=== PATIENT | male | born 1965 | race Caucasian/White ===

== ENCOUNTER 2016-11-28 06:44 | Emergency (ER) | payer OTHER ==
[~2016-11-28] VITALS: Ht 162.6 cm; Wt 89.1 kg
[2016-11-28 06:49] VITALS: TEMP 36.8; Ht 162.6 cm; Wt 89.1 kg
[2016-11-28] MEDS ORDERED: KETOROLAC TROMETHAMINE 60 MG/2 ML VIAL IM STA (07:25)
[2016-11-28] MEDS ORDERED: HYDROmorphone INJ 0.5 MG/0.5 ML SYR IM ONE ×2 (07:30→08:30)
--- NOTE | 2016-11-28 07:33 | EMERGENCY ROOM VISIT NOTE ---
History First contact with patient: 06:54 Chief Complaint: BACK PAIN Stated Complaint: LOWER BACK PAIN History of Present Illness The patient is a 51 year old male w/ hx of Kidney Stones, who presents to the Emergency Room with complaints of Rt sided Lower back pain. Pain started suddenly 1 wk prior to arrival, 8 /10 intensity while he was walking to his care. He did not take any medication for pain but pain improved significantly until today. Currently , he is complaining of 9/10 pain in the same region, NO fevers/chills, no bladder or bowel incontinence, no numbness weakness, tingling . Pt denies headache, change in vision, fevers, chest pain, shortness of breath , nausea, vomiting, pain with urination, hematuria and melena. Review of Systems See HPI for pertinent positives & negatives. A total of 10 systems reviewed and were otherwise negative. Past Medical/Surgical History Medical Problems: (1) Diverticulitis Past Medical Hx: Nephrolithiasis Diverticulitis Past Surgical Hx: Rt Knee meniscus repair Social History Smoking Status: Never Smoker Marital Status: Current/Historical Medications Scheduled PRN Oxycodone Immediate Rel Tab (Roxicodone Ir), 5 MG PO Q4H PRN for Severe Pain Allergies Coded Allergies: No Known Allergies (Unverified , 11/28/16) Physical Exam Vital Signs Date Time Temp Pulse Resp B/P Pulse Ox O2 Delivery O2 Flow Rate FiO2 11/28/16 08:33 61 18 127/86 93 Room Air 11/28/16 06:49 36.8 87 18 160/103 96 Room Air Physical Exam GENERAL: alert, well appearing, well nourished, no distress, non-toxic EYE EXAM: normal conjunctiva, PERRL and EOM's grossly intact NECK: supple, no nuchal rigidity, no adenopathy, non-tender LUNGS: Clear to auscultation. Normal chest wall mechanics HEART: no murmurs, S1 normal and S2 normal ABDOMEN: abdomen soft, non-tender, normo-active bowel sounds, no masses, no rebound or guarding. BACK: Rt sided paraspinal muscle tenderness to palpation in lumbar region, Back is symmetrical on inspection and there is no deformity, no midline tenderness, no CVA tenderness. straight leg raise test negative. SKIN: no rashes and no bruising UPPER EXTREMITIES: upper extremities are grossly normal. LOWER EXTREMITIES: No pitting edema. NEURO EXAM: Normal sensorium, cranial nerves II-XII grossly intact, normal speech, no gross weakness of arms, no gross weakness of legs. Gross sensation intact. Medical Decision & Procedures ER Provider Diagnostic Interpretation: LUMBAR SPINE 5 VIEWS CLINICAL HISTORY: Low back pain. FINDINGS: 5 views of the lumbar spine are correlated with abdominal CT dated 01/29/2011. The skeletal structures are well mineralized. There is no radiographic evidence of fracture or malalignment. Vertebral body height and alignment are maintained. The transverse and spinous processes are intact. There is no evidence of spondylolysis. Small anterior osteophytes are seen throughout. There is mild to moderate degenerative disc space narrowing at L5-S1. Mild disc space narrowing is seen at L3-L4 and L4-L5. The visualized bony pelvis appears intact. There is a nonobstructed abdominal bowel gas pattern. IMPRESSION: No acute bony abnormality is seen involving the lumbosacral spine. Laboratory Results Test 11/28/16 07:29 Urine Color YELLOW Urine Appearance CLEAR (CLEAR) Urine pH 5.5 (4.5-7.5) Urine Specific [place] 1.020 (1.000-1.030) Urine Protein NEG (NEG) Urine Glucose (UA) NEG (NEG) Urine Ketones NEG (NEG) Urine Occult Blood NEG (NEG) Urine Nitrite NEG (NEG) Urine Bilirubin NEG (NEG) Urine Urobilinogen NEG (NEG) Urine Leukocyte Esterase NEG (NEG) Urine WBC (Auto) 1-5 /hpf (0-5) Urine RBC (Auto) 0-4 /hpf (0-4) Urine Hyaline Casts (Auto) 1-5 /lpf (0-5) Urine Epithelial Cells (Auto) 0-5 /lpf (0-5) Urine Bacteria (Auto) NEG (NEG) Medications Administered Medications (Trade) Dose Ordered Sig/Nicole Route Start Time Stop Time Status Last Admin Dose Admin Ketorolac Tromethamine (Toradol Inj) 60 mg NOW STAT IM 11/28/16 07:25 11/28/16 07:27 DC 11/28/16 07:25 60 MG Hydromorphone HCl (Dilaudid Inj) 0.5 mg ONE ONCE IM 11/28/16 07:30 11/28/16 07:31 DC 11/28/16 07:30 0.5 MG Hydromorphone HCl (Dilaudid Inj) 0.5 mg NOW ONCE IM 11/28/16 08:30 11/28/16 08:31 DC 11/28/16 08:34 0.5 MG Medical Decision Differential diagnoses includes but is not limited to lumbar radiculopathy, muscle strain, facture, cauda equina, mass, and disc herniation. 51 yo M p/w with Rt sided Lower back pain x 1 wk, rt sided lumbar paraspinal muscle tender on palpation, straight leg test negative, afebrile , no paresthesia Lower Back pain UA: unremarkable -XR Lumbar Spine: No acute bony abnormality is seen involving the lumbosacral spine. -Given IM Toradol 60 mg -Given .5 mg IM Dilaudid x2 Lower back pain most likely due to muscle strain as patient is involved with lifting heavy objects on the job. Disc herniation is unlikely considering lack of radiculopathy on straight leg test. Fx ruled out with XR and no hx of trauma. Kidney stone etiology unlikely given lack of CVA tenderness and lack of hematuria on UA. Upon reevaluation, the patient is feeling better. I discussed the findings and the treatment plan with the patient. He verbalizes agreement and understanding. He was discharged home with follow up to PCP. Impression Primary Impression: Lower back pain Departure Information Dispostion Home / Self-Care Condition GOOD Prescriptions Oxycodone Immediate Rel Tab (ROXICODONE IR) 5 Mg Tab 5 MG PO Q4H Y for Severe Pain, #20 TAB Prov: Johnny Beckman, DO 11/28/16 Referrals Yosvany Duggan D.O.Int.Med. (PCP) Patient Instructions My [facility] Resident Tracking Resident Involvement: Resident Care Provided Care Provided: Adult ED Problem Qualifiers Primary Impression: Lower back pain Chronicity: acute Back pain laterality: right
[2016-11-28 07:57] LABS: URINE APPEARANCE CLEAR (CLEAR); URINE BILIRUBIN NEG (NEG); URINE COLOR YELLOW; URINE EPITHELIAL CELL AUTO 0-5 /lpf (0-5); URINE NITRITE NEG (NEG); URINE PH 5.5 (4.5-7.5); UROBILINOGEN NEG (NEG)
[2016-11-28 08:00] LABS: MANUAL MICROSCOPIC REQUIRED? NO; REVIEW REQ? NO
--- NOTE | 2016-11-28 08:02 | EMERGENCY ROOM VISIT NOTE ---
History Report prepared by Peter: Felix Turner Under the Supervision of: Dr. Johnny Beckman D.O. First contact with patient: 06:54 Chief Complaint: BACK PAIN Stated Complaint: LOWER BACK PAIN History of Present Illness The patient is a 51 year old male who presents to the Emergency Room with complaints of persistent right-sided lower back pain that started a week ago. The patient states that he felt a sharp pain in his low back when he was walking down his driveway a week ago. The discomfort is worse with changing positions. It is somewhat relieved when he is standing. The patient notes the discomfort worsened 2 days ago and has not improved at all since then. He also states that it radiates down through to his butt. The patient lifts a lot at work, but says that the lifting has not been aggravating his discomfort more. He also has a history of kidney stones, but states that his symptoms are different from his typical kidney stone symptoms. Pt denies headache, change in vision, fevers, chest pain, shortness of breath, nausea, vomiting, pain with urination, and melena. No weakness or numbness in his groin. No change with urination or moving his bowels. No numbness in his extremities. No weakness in his extremities. Source of History: patient Onset: one week ago Position: back (lower) Timing: other (persistent) Modifying Factors (Worsening): other (changing position) Modifying Factors (Relieving): other (standing) Associated Symptoms: No SOB, No chest pain, No fevers, No headache, No melena, No nausea, No urinary symptoms, No vomiting, No weakness Note: Denies: vision changes Review of Systems See HPI for pertinent positives & negatives. A total of 10 systems reviewed and were otherwise negative. Past Medical & Surgical Medical Problems: (1) Diverticulitis Family History FH: cancer FH: lung disease Kidney stone Social History Smoking Status: Never Smoker Marital Status: Housing Status: lives with family Occupation Status: employed Current/Historical Medications Scheduled PRN Oxycodone Immediate Rel Tab (Roxicodone Ir), 5 MG PO Q4H PRN for Severe Pain Allergies Coded Allergies: No Known Allergies (Unverified , 11/28/16) Physical Exam Vital Signs Date Time Temp Pulse Resp B/P Pulse Ox O2 Delivery O2 Flow Rate FiO2 11/28/16 08:33 61 18 127/86 93 Room Air 11/28/16 06:49 36.8 87 18 160/103 96 Room Air Physical Exam GENERAL: alert, well appearing, well nourished, no distress, non-toxic EYE EXAM: normal conjunctiva, OROPHARYNX: no exudate, no erythema, lips, buccal mucosa, and tongue normal and mucous membranes are moist NECK: supple, no nuchal rigidity, no adenopathy, non-tender LUNGS: Clear to auscultation. Normal chest wall mechanics HEART: no murmurs, S1 normal and S2 normal ABDOMEN: abdomen soft, non-tender, normo-active bowel sounds, no masses, no rebound or guarding. BACK: Back is symmetrical on inspection and there is no deformity, no midline tenderness, no CVA tenderness. Minimal tenderness over right lower lumbar paraspinal region. No erythema or ecchymosis. SKIN: no rashes and no bruising. UPPER EXTREMITIES: upper extremities are grossly normal. LOWER EXTREMITIES: No pitting edema. Flexion and extension of hip, knee, ankle, EHL is 5/5. Able to walk on heels and toes. Patellar and Achilles reflexes 1/4 bilaterally. Gross sensation intact. NEURO EXAM: Normal sensorium, able to walk without difficulty. Medical Decision & Procedures ER Provider Diagnostic Interpretation: Radiology results as stated below per my review and the radiologist's interpretation: LUMBAR SPINE 5 VIEWS CLINICAL HISTORY: Low back pain. FINDINGS: 5 views of the lumbar spine are correlated with abdominal CT dated 01/29/2011. The skeletal structures are well mineralized. There is no radiographic evidence of fracture or malalignment. Vertebral body height and alignment are maintained. The transverse and spinous processes are intact. There is no evidence of spondylolysis. Small anterior osteophytes are seen throughout. There is mild to moderate degenerative disc space narrowing at L5-S1. Mild disc space narrowing is seen at L3-L4 and L4-L5. The visualized bony pelvis appears intact. There is a nonobstructed abdominal bowel gas pattern. IMPRESSION: No acute bony abnormality is seen involving the lumbosacral spine. Electronically signed by: Yaya Armijo M.D. 11/28/2016 8:13 AM Dictated Date/Time: 11/28/2016 8:12 AM Laboratory Results Test 11/28/16 07:29 Urine Color YELLOW Urine Appearance CLEAR (CLEAR) Urine pH 5.5 (4.5-7.5) Urine Specific [place] 1.020 (1.000-1.030) Urine Protein NEG (NEG) Urine Glucose (UA) NEG (NEG) Urine Ketones NEG (NEG) Urine Occult Blood NEG (NEG) Urine Nitrite NEG (NEG) Urine Bilirubin NEG (NEG) Urine Urobilinogen NEG (NEG) Urine Leukocyte Esterase NEG (NEG) Urine WBC (Auto) 1-5 /hpf (0-5) Urine RBC (Auto) 0-4 /hpf (0-4) Urine Hyaline Casts (Auto) 1-5 /lpf (0-5) Urine Epithelial Cells (Auto) 0-5 /lpf (0-5) Urine Bacteria (Auto) NEG (NEG) Laboratory results per my review. Medications Administered Medications (Trade) Dose Ordered Sig/Nicole Route Start Time Stop Time Status Last Admin Dose Admin Ketorolac Tromethamine (Toradol Inj) 60 mg NOW STAT IM 11/28/16 07:25 11/28/16 07:27 DC 11/28/16 07:25 60 MG Hydromorphone HCl (Dilaudid Inj) 0.5 mg ONE ONCE IM 11/28/16 07:30 11/28/16 07:31 DC 11/28/16 07:30 0.5 MG Hydromorphone HCl (Dilaudid Inj) 0.5 mg NOW ONCE IM 11/28/16 08:30 11/28/16 08:31 DC 11/28/16 08:34 0.5 MG ED Course ED COURSE: Vital signs were reviewed and showed hypertensive. The patients medical record was reviewed The above diagnostic studies were performed and reviewed. ED treatments and interventions as stated above. 0717: The patient was evaluated in room A3. A complete history and physical examination was performed. 0725: Ordered Toradol Inj 60 mg IM. 0730: Ordered Dilaudid Inj 0.5 mg IM. 0825: At this time, I reevaluated the patient and he was feeling better. He was still having some pain, so more pain medications were ordered 0830: Ordered Dilaudid Inj 0.5 mg IM. 1005: Upon reevaluation, the patient is resting comfortably.I discussed my findings with the patient and he understands and agrees with the treatment plan. Based on the patients age, coexisting illnesses, exam and lab findings the decision to treat as an outpatient was made. The patient remained stable while under my care. The patient appeared well at the time of discharge. Medical Decision Differential diagnoses includes but is not limited to lumbar radiculopathy, muscle strain, facture, cauda equina, mass, and disc herniation. Patient is a 51-year-old male who denies any history of recent trauma, IV drug use, fevers, or cancer who presents the ER for a week's worth of right-sided lower back pain. Pain is located in the right lower lumbar paraspinal region. It tracks down into his right gluteus about 2-3 inches. It is reproducible. He has no signs or symptoms to suggest cauda equina. He has no risk factors with the exception of his age. This is not consistent with a kidney stone. Pain is reproducible and positional. UA has no hematuria. Patient was given intramuscular Toradol and Dilaudid. X-rays of his lumbar spine were unremarkable. Patient was updated in regards to his findings and discharged follow-up with his primary care doctor for muscle skeletal back pain. Discussed with Pt concerning signs and symptoms to watch out for. Pt was instructed to follow up with their PCP and discussed with the patient their option to return to the ED at anytime for persistent or worsening symptoms. The appropriate anticipatory guidance and out-patient management, including indications for return to the emergency department, were explained at length to the patient and understood. Impression Primary Impression: Lower back pain Scribe Attestation The scribe's documentation has been prepared under my direction and personally reviewed by me in its entirety. I confirm that the note above accurately reflects all work, treatment, procedures, and medical decision making performed by me. Departure Information Dispostion Home / Self-Care Prescriptions Oxycodone Immediate Rel Tab (ROXICODONE IR) 5 Mg Tab 5 MG PO Q4H Y for Severe Pain, #20 TAB Prov: Johnny Beckman, 11/28/16 Referrals Yosvany Duggan D.O.Int.Med. (PCP) Forms HOME CARE DOCUMENTATION FORM, IMPORTANT VISIT INFORMATION Patient Instructions Back Pain - [facility], [facility] Additional Instructions Please follow up with your primary care doctor with in the next 24 hours. Any worsening of your symptoms, please return to the ED immediately. This includes any numbness in your groin, unable to more your bowels or urinate, numbness or weakness in the legs, fevers greater than 100.4, or worsening of your pain. Please take Motrin 400 mg 3 times a day as needed for pain. You were given medications during this visit that will inhibit your ability to drive, operate machinery and work. Please do NOT drive, operate machinery or work for the next 12hrs. You were also given a prescription for a narcotic/Oxy IR. While taking this medication you should also not drive, operate machinery and or work. Problem Qualifiers Primary Impression: Lower back pain Chronicity: acute Back pain laterality: unspecified Sciatica presence: without sciatica Qualified Codes: M54.5 - Low back pain
--- NOTE | 2016-11-28 08:15 | DIAGNOSTIC IMAGING REPORT ---
LUMBAR SPINE 5 VIEWS CLINICAL HISTORY: Low back pain. FINDINGS: 5 views of the lumbar spine are correlated with abdominal CT dated 01/29/2011. The skeletal structures are well mineralized. There is no radiographic evidence of fracture or malalignment. Vertebral body height and alignment are maintained. The transverse and spinous processes are intact. There is no evidence of spondylolysis. Small anterior osteophytes are seen throughout. There is mild to moderate degenerative disc space narrowing at L5-S1. Mild disc space narrowing is seen at L3-L4 and L4-L5. The visualized bony pelvis appears intact. There is a nonobstructed abdominal bowel gas pattern. IMPRESSION: No acute bony abnormality is seen involving the lumbosacral spine. Electronically signed by: Yaya Armijo M.D. 11/28/2016 8:13 AM Dictated Date/Time: 11/28/2016 8:12 AM
[2016-11-28] MEDS ORDERED: OXYC1TAB3 PO (08:30)
[2016-11-28 08:33] VITALS: BP 127/86; PULSE 61; O2SAT 93
== END 2016-11-28 08:40 | disposition home or self-care (01) ==
LOC: C.EDB 06:45 → C.EDA 08:40
DX: M54.5 Low back pain (principal); Z87.19 Personal history of other diseases of the digestive system; Z87.442 Personal history of urinary calculi; Z80.9 Family history of malignant neoplasm, unspecified; Z84.1 Family history of disorders of kidney and ureter